=== PATIENT | female | born 1955 | race Caucasian/White ===

== ENCOUNTER → 2020-07-16 | Day surgery (SDC) | payer OTHER, MEDICARE ==
[~2020-07-16] MED LIST: AMITRIPTYLINE 550 MG PO; BACLOFEN 10MG T10 MG PO; CLONAZEPAM0.5 MG PO; DEXILANT60 MG PO; DICLOFENAC SODI75 MG PO; EVISTA60 MG PO; MYSOLINE250 MG PO; NORCO 5-325 TA1 EACH PO; OXCARBAZEPINE300 MG PO; PERCOCET 5-3251 EACH PO; PRILOSEC20 MG PO; PRIMIDONE50 MG PO; SYMAX-SR0.375 MG PO; SYNTHROID25 MCG PO; VITAMIN B-121000 MC1 PO; VITAMIN D22000 UNIT PO
[2020-07-16 09:53] LABS: HCT 35.7 % (37.0-47.0); HGB 12.5 g/dl (12.5-16.0); MCV 91.3 fL (78.0-100.0); MPV 10.1 fL (6.0-9.5); RBC 3.91 M/uL (4.20-5.40); RDW 12.6 % (11.5-14.0); WBC 6.4 K/uL (4.0-10.5)
[2020-07-16 10:11] LABS: ALBUMIN 3.6 g/dL (3.4-5.0); BILIRUBIN - TOTAL 0.3 mg/dL (0.2-1.0); BUN/CREAT RATIO (CALC) 28.3 RATIO; CREATININE 0.46 mg/dL (0.51-0.95); GLOBULIN (CALCULATION) 3.5 g/dL; POTASSIUM 3.9 mmol/L (3.5-5.1); TOTAL PROTEIN 7.1 g/dL (6.4-8.2)
== END | disposition home or self-care (01) ==
LOC: FAS 09:13
PROVIDERS: Orthopaedic Surgery
DX: M75.111 Incomplete rotator cuff tear or rupture of right shoulder, not specified as traumatic (principal); M75.51 Bursitis of right shoulder; M25.811 Other specified joint disorders, right shoulder; M19.011 Primary osteoarthritis, right shoulder; Z20.822 Contact with and (suspected) exposure to COVID-19
CPT/HCPCS: 36415; 71045; 80053; 93005; J0171; J0690; J1100; J1885; J2250; J2405; J2704; J2795; J3010; J7120

== ENCOUNTER → 2021-03-31 | Day surgery (SDC) | payer MEDICARE, OTHER ==
[~2021-03-31] VITALS: Ht 162.6 cm; Wt 63.0 kg
== END | disposition home or self-care (01) ==
LOC: FAS 05:48
DX: M24.611 Ankylosis, right shoulder (principal); M75.01 Adhesive capsulitis of right shoulder; Z90.710 Acquired absence of both cervix and uterus; Z90.49 Acquired absence of other specified parts of digestive tract; Z98.51 Tubal ligation status; Z88.1 Allergy status to other antibiotic agents; Z88.5 Allergy status to narcotic agent; Z88.2 Allergy status to sulfonamides
CPT/HCPCS: 97162; 97530-GP; J0735; J1100; J2250; J2704; J2795; J7120